=== PATIENT | female | born 1960 | race African-American/Black ===

== ENCOUNTER 2023-12-13 15:14 | Observation (INO) | payer MEDICARE, OTHER ==
--- NOTE | 2023-12-13 15:29 | ED ---
General Adult HPI - General Chief complaint: Chest Pain Stated complaint: Chest pain Time Seen by Provider: 12/13/23 15:17 Source: patient, EMS, RN notes reviewed Mode of arrival: EMS Limitations: no limitations - History of Present Illness Initial comments: Patient is a 63-year-old female presenting to the emergency department from [place] with complaints of chest discomfort. Onset of symptoms was a couple hours ago. Discomfort feels sharp and persistent. Discomfort is rated 9/10. There may be associated minimal dyspnea. No nausea. No diaphoresis. No history of similar symptoms previously. Patient does have history of 2 previous heart attacks. Patient also has history of sarcoidosis. patient is at [place] secondary to history of cocaine use. - Related Data Home Medications Medication Instructions Recorded Confirmed Acetaminophen [Tylenol] 650 mg PO Q4H PRN 12/13/23 12/13/23 Aspirin 81 mg PO DAILY 12/13/23 12/13/23 Atorvastatin [Lipitor] 20 mg PO HS 12/13/23 12/13/23 Calcium Phos/D3/Magnesium/Zinc 1 tab PO TID PRN 12/13/23 12/13/23 [Gumbaud-Qoq-Aluk-Vitamin D3] Empagliflozin [Jardiance] 10 mg PO DAILY 12/13/23 12/13/23 Fluticasone/Vilanterol [Breo 1 puff INHALATION RT-BID 12/13/23 12/13/23 Ellipta 100-25 Mcg Inhalr] Furosemide [Lasix] 40 mg PO DAILY 12/13/23 12/13/23 Ibuprofen [Motrin Ib] 600 mg PO Q6H PRN 12/13/23 12/13/23 Menthol [Icy Hot] 1 patch TRANSDERM Q12H PRN 12/13/23 12/13/23 Sacubitril/Valsartan [Entresto 24 1 tab PO BID 12/13/23 12/13/23 mg-26 mg Tablet] Simethicone Chew [Mylicon Chew] 80 mg PO Q4H PRN 12/13/23 12/13/23 Spironolactone 25 mg PO DAILY 12/13/23 12/13/23 carvediloL [Coreg] 3.125 mg PO BID 12/13/23 12/13/23 traZODone HCL [Desyrel] 50 - 150 mg PO HS PRN 12/13/23 12/13/23 Allergies Allergy/AdvReac Type Severity Reaction Status Date / Time Iodinated Contrast Media Allergy Unknown Verified 12/13/23 15:44 Review of Systems ROS Statement: Those systems with pertinent positive or pertinent negative responses have been documented in the HPI. ROS Other: All systems not noted in ROS Statement are negative. Constitutional: Denies: fever Eyes: Denies: eye pain ENT: Denies: ear pain Respiratory: Reports: as per HPI Cardiovascular: Reports: as per HPI, chest pain Musculoskeletal: Denies: back pain Past Medical History Past Medical History: Cancer Additional Past Medical History / Comment(s): CHF, fibromyalgia History of Any Multi-Drug Resistant Organisms: None Reported Past Surgical History: No Surgical Hx Reported Past Psychological History: No Psychological Hx Reported Past Drug Use History: Cocaine General Exam Limitations: no limitations General appearance: alert, in no apparent distress Head exam: Present: normocephalic Eye exam: Present: normal appearance Neck exam: Present: normal inspection Respiratory exam: Present: normal lung sounds bilaterally. Absent: chest wall tenderness Cardiovascular Exam: Present: regular rate, normal rhythm Expanded Peripheral pulses: 2+: Radial (R), Radial (L), Dorsalis Pedis (R), Dorsalis Pedis (L) GI/Abdominal exam: Present: soft. Absent: tenderness Extremities exam: Present: normal inspection. Absent: pedal edema, calf tenderness Neurological exam: Present: alert Psychiatric exam: Present: normal affect, normal mood Skin exam: Present: normal color Course Vital Signs 12/13/23 12/13/23 12/13/23 15:15 15:23 15:41 Temperature 97.4 F L Pulse Rate 76 Pulse Rate [ 75 Safety Representative ] Respiratory 20 Rate Blood Pressure 117/62 98/81 O2 Sat by Pulse 100 Oximetry 12/13/23 12/13/23 12/13/23 16:43 16:48 18:00 Temperature 98.2 F Pulse Rate 76 76 84 Pulse Rate [ Safety Representative ] Respiratory 18 16 18 Rate Blood Pressure 104/80 108/69 105/77 O2 Sat by Pulse 95 100 Oximetry EKG Findings - EKG Results: EKG: interpreted by ERMD (Left axis. Septal Q waves. Inferior Q waves. Lateral T wave inversion.), sinus rhythm Medical Decision Making - Medical Decision Making [facility] back was pt. sent in by a medical professional or institution (JOVITA Osman, MEDICAL RESEARCH SCIENTIST, urgent care, hospital, or retirement...) When possible be specific @ -Patient was sent from [place] rehab facility Did you speak to anyone other than the patient for history (EMS, parent, family, police, friend...)? What history was obtained from this source @ -No Did you review nursing and triage notes (agree or disagree)? Why? @ -I reviewed and agree with nursing and triage notes Were old charts reviewed (outside hosp., previous admission, EMS record, old EKG, old radiological studies, urgent care reports/EKG's, retirement records)? Report findings @ -Reviewed from [place] Differential Diagnosis (chest pain, altered mental status, abdominal pain women, abdominal pain men, vaginal bleeding, weakness, fever, dyspnea, syncope, headache, dizziness, GI bleed, back pain, seizure, CVA, palpatations, mental health, musculoskeletal)? @ -Differential Chest Pain: Stable Angina, Unstable Angina, STEMI, NSTEMI Aortic Dissection, Pneumothorax, Musculoskeletal, Esophageal Spasm GERD, Cholecystitis, Pancreatitis, Zoster, this is not meant to be an all-inclusive list. EKG interpreted by me (3pts min.). @ -As above X-rays interpreted by me (1pt min.). @ -Chest x-ray shows cardiomegaly and minimal right effusion CT interpreted by me (1pt min.). @ -Scan without pulmonary embolism. There is concern for fluffy infiltrates. U/S interpreted by me (1pt. min.). @ -None done What testing was considered but not performed or refused? (CT, X-rays, U/S, labs)? Why? @ -None What meds were considered but not given or refused? Why? @ -None Did you discuss the management of the patient with other professionals (professionals i.e. JOVITA Osman, MEDICAL RESEARCH SCIENTIST, lab, RT, psych nurse, nephrology social worker, group cio, teacher, youth probation officer, telephonic nurse case manager)? Give summary @ -Case was discussed with Dr. Washington who will admit covering hospital call Was smoking cessation discussed for >3mins.? @ -No Was critical care preformed (if so, how long)? @ -No Were there social determinants of health that impacted care today? How? (Homelessness, low income, unemployed, alcoholism, drug addiction, transportation, low edu. Level, literacy, decrease access to med. care, assisted, rehab)? @ -No Was there de-escalation of care discussed even if they declined (Discuss DNR or withdrawal of care, Hospice)? DNR status @ -No What co-morbidities impacted this encounter? (DM, HTN, Smoking, COPD, CAD, Can cer, CVA, ARF, Chemo, Hep., AIDS, mental health diagnosis, sleep apnea, morbid obesity)? @ -Coronary artery disease Was patient admitted / discharged? Hospital course, mention meds given and route, prescriptions, significant lab abnormalities, going to OR and other pertinent info. @ -Patient presents with chest pain on reevaluation patient is symptom-free and resting comfortably in bed. Questionable findings on CT scan and COVID and influenza testing will be ordered. Patient does not have clinical symptoms of pneumonia as well as no fever and no elevation of white blood cell count. Patient will be admitted with cardiac consult. Admission orders written. Undiagnosed new problem with uncertain prognosis? @ -No Drug Therapy requiring intensive monitoring for toxicity (Heparin, Nitro, I nsulin, Cardizem)? @ -No Were any procedures done? @ -No Diagnosis/symptom? @ -Chest pain Acute, or Chronic, or Acute on Chronic? @ -Acute Uncomplicated (without systemic symptoms) or Complicated (systemic symptoms)? @ -Angela with history of sarcoid and cocaine use and previous cardiac disease Side effects of treatment? @ -No Exacerbation, Progression, or Severe Exacerbation? @ -No Poses a threat to life or bodily function? How? (Chest pain, [place], [place], pneumonia, PE, COPD, DKA, ARF, appy, cholecystitis, CVA, Diverticulitis, Homicidal, Suicidal, threat to staff... and all critical care pts) @ -Threat to cardiac function - Lab Data Result diagrams: 12/13/23 15:28 12/13/23 15:28 Lab Results 12/13/23 12/13/23 12/13/23 Range/Units 15:28 15:28 15: WBC 4.2 (3.8-10.6) k/uL RBC 4.87 (3.80-5.40) m/uL Hgb 14.5 (11.4-16.0) gm/dL Hct 45.7 (34.0-46.0) % MCV 93.8 (80.0-100.0) fL MCH 29.8 (25.0-35.0) pg MCHC 31.7 (31.0-37.0) g/dL RDW 15.1 (11.5-15.5) % Plt Count 246 (150-450) k/uL MPV 7.2 Neutrophils % 56 % Lymphocytes % 30 % Monocytes % 8 % Eosinophils % 4 % Basophils % 1 % Neutrophils # 2.3 (1.3-7.7) k/uL Lymphocytes # 1.2 (1.0-4.8) k/uL Monocytes # 0.4 (0-1.0) k/uL Eosinophils # 0.2 (0-0.7) k/uL Basophils # 0.0 (0-0.2) k/uL Hypochromasia Marked PT 10.8 (10.0-12.5) sec INR 1.0 (<1.2) APTT 23.1 (22.0-30.0) sec D-Dimer 0.97 H (<0.60) mg/L FEU Sodium 138 (137-145) mmol/L Potassium 5.1 (3.5-5.1) mmol/L Chloride 110 H (98-107) mmol/L Carbon Dioxide 21 L (22-30) mmol/L Anion Gap 7 mmol/L BUN 35 H (7-17) mg/dL Creatinine 1.25 H (0.52-1.04) mg/dL Est GFR (CKD-EPI)AfAm 54 (>60 ml/min/1.73 sqM) Est GFR (CKD-EPI)NonAf 47 (>60 ml/min/1.73 sqM) Glucose 67 L (74-99) mg/dL Calcium 9.8 (8.4-10.2) mg/dL Magnesium 2.0 (1.6-2.3) mg/dL Total Bilirubin 0.5 (0.2-1.3) mg/dL AST 34 (14-36) U/L ALT 24 (4-34) U/L Alkaline Phosphatase 97 (38-126) U/L Troponin I (0.000-0.034) ng/mL Total Protein 7.4 (6.3-8.2) g/dL Albumin 4.3 (3.5-5.0) g/dL Amylase 207 H (30-110) U/L Lipase 608 H (23-300) U/L 12/13/23 Range/Units 15:28 WBC (3.8-10.6) k/uL RBC (3.80-5.40) m/uL Hgb (11.4-16.0) gm/dL Hct (34.0-46.0) % MCV (80.0-100.0) fL MCH (25.0-35.0) pg MCHC (31.0-37.0) g/dL RDW (11.5-15.5) % Plt Count (150-450) k/uL MPV Neutrophils % % Lymphocytes % % Monocytes % % Eosinophils % % Basophils % % Neutrophils # (1.3-7.7) k/uL Lymphocytes # (1.0-4.8) k/uL Monocytes # (0-1.0) k/uL Eosinophils # (0-0.7) k/uL Basophils # (0-0.2) k/uL Hypochromasia PT (10.0-12.5) sec INR (<1.2) APTT (22.0-30.0) sec D-Dimer (<0.60) mg/L FEU Sodium (137-145) mmol/L Potassium (3.5-5.1) mmol/L Chloride (98-107) mmol/L Carbon Dioxide (22-30) mmol/L Anion Gap mmol/L BUN (7-17) mg/dL Creatinine (0.52-1.04) mg/dL Est GFR (CKD-EPI)AfAm (>60 ml/min/1.73 sqM) Est GFR (CKD-EPI)NonAf (>60 ml/min/1.73 sqM) Glucose (74-99) mg/dL Calcium (8.4-10.2) mg/dL Magnesium (1.6-2.3) mg/dL Total Bilirubin (0.2-1.3) mg/dL AST (14-36) U/L ALT (4-34) U/L Alkaline Phosphatase (38-126) U/L Troponin I <0.012 (0.000-0.034) ng/mL Total Protein (6.3-8.2) g/dL Albumin (3.5-5.0) g/dL Amylase (30-110) U/L Lipase (23-300) U/L Disposition Clinical Impression: Chest pain Disposition: ADMITTED IP TO THIS HOSP Is patient prescribed a controlled substance at d/c from ED?: No Referrals: Nonstaff,Physician [Primary Care Provider] - 1-2 days Time of Disposition: 18:51
[2023-12-13] MEDS: ASPIRIN 81 MG PO STA (15:39)
[2023-12-13 15:40] LABS: Basophils % (A) 1 %; Eosinophils # (A) 0.2 k/uL (0-0.7); Eosinophils % (A) 4 %; HCT 45.7 % (34.0-46.0); HGB 14.5 gm/dL (11.4-16.0); Hypochromasia Marked; Lymphocytes # (A) 1.2 k/uL (1.0-4.8); Lymphocytes % (A) 30 %; MCH 29.8 pg (25.0-35.0); MCHC 31.7 g/dL (31.0-37.0); MCV 93.8 fL (80.0-100.0); Mean Platelet Volume 7.2; Monocytes # (A) 0.4 k/uL (0-1.0); Monocytes % (A) 8 %; Neutrophils # (A) 2.3 k/uL (1.3-7.7); Neutrophils % (A) 56 %; Platelet Count 246 k/uL (150-450); RBC 4.87 m/uL (3.80-5.40); RDW 15.1 % (11.5-15.5); WBC 4.2 k/uL (3.8-10.6)
[2023-12-13] MEDS: NITROGLYCERIN SL TABS 0.4 MG TAB SUBLINGUAL STA ×3 (15:41→15:56)
[2023-12-13] MEDS: LORazepam 2 MG/ML INJ IV STA (15:43)
--- NOTE | 2023-12-13 15:43 | XR ---
EXAMINATION TYPE: XR chest 2V DATE OF EXAM: 12/13/2023 3:36 PM CLINICAL INDICATION:Female, 63 years old with history of Chest Pain; PH[facility] COMPARISON: None TECHNIQUE: XR chest 2V Frontal view of the chest. FINDINGS: Lungs/Pleura: Blunting of the right costophrenic angle. The left costophrenic angle is clear. There i s no evidence of pleural effusion, focal consolidation, or pneumothorax. Pulmonary vascularity: Unremarkable. Heart/mediastinum: Cardiomediastinal silhouette is enlarged and stable. Two lead cardiac conduction d evice overlying the left hemithorax with lead tips projecting over the right ventricle and right atri um. Musculoskeletal: No acute osseous pathology. IMPRESSION: Cardiomegaly with small right pleural effusion.
[2023-12-13 15:51] LABS: ALT 24 U/L (4-34); AST 34 U/L (14-36); African American GFR (CKD) 54 (>60 ml/min/1.73 sqM); Albumin 4.3 g/dL (3.5-5.0); Alkaline Phosphatase 97 U/L (38-126); Amylase 207 U/L (30-110); Anion Gap 7 mmol/L; Blood Urea Nitrogen 35 mg/dL (7-17); Calcium 9.8 mg/dL (8.4-10.2); Carbon Dioxide 21 mmol/L (22-30); Chloride 110 mmol/L (98-107); Glucose 67 mg/dL (74-99); Lipase 608 U/L (23-300); Non-African American GFR(CKD) 47 (>60 ml/min/1.73 sqM); Potassium 5.1 mmol/L (3.5-5.1); Sodium 138 mmol/L (137-145); Total Bilirubin 0.5 mg/dL (0.2-1.3); Total Protein 7.4 g/dL (6.3-8.2)
[2023-12-13] MEDS: SODIUM CHLORIDE 0.9% 500 ML 500 ML IV ONE (15:52)
[2023-12-13 15:57] LABS: Partial Thromboplastin Time 23.1 sec (22.0-30.0); Prothrombin Time 10.8 sec (10.0-12.5)
[2023-12-13] MEDS: methylPREDNISolone SOD SUCCI 125 MG/2 ML VIAL IV STA (16:36)
[2023-12-13] MEDS: FAMOTIDINE 20 MG/2 ML VIAL IV STA (16:39)
[2023-12-13] MEDS: diphenhydrAMINE 50 MG/ML 1 ML VIAL IVP STA (16:43)
--- NOTE | 2023-12-13 18:30 | CT ---
EXAMINATION TYPE: CT angio chest CT DLP: 345.4 mGycm, Automated exposure control for dose reduction was used. DATE OF EXAM: 12/13/2023 5:38 PM COMPARISON: Chest radiograph from same day. Multiple CTs of the chest with most recent on . CLINICAL INDICATION:Female, 63 years old with history of chest pain; CHEST PAIN TECHNIQUE/CONTRAST: CTA scan of the thorax is performed with IV Contrast, patient injected with 100 ml mL of Isovue 370, MIP images are created and reviewed these are created on a separate workstation.. FINDINGS: Pulmonary Artery: There is no evidence for a filling defect within the pulmonary vasculature to sugge st acute pulmonary embolism. The pulmonary artery is of normal size. Lungs/Pleura: Small foci of consolidation in the posterior right lower lobe. Small amount of pneumoni a in the right lung base patchy groundglass and more confluent areas of airspace disease in the right lobe. Hazy groundglass opacity in the lingula. Airway: Large airways are patent. Heart: Enlarged. Vasculature: No evidence of aortic aneurysm. Mediastinum: No gross evidence of adenopathy. Musculoskeletal: No acute osseous abnormalities Soft Tissues: Unremarkable. Lower neck: No significant findings. Upper Abdomen: No significant findings. IMPRESSION: 1. No evidence of pulmonary embolism. 2. Peripheral groundglass pulmonary opacities consistent with atypical pulmonary infection such as CO VID-19. 3. Other areas of more focally consolidated could represent community-acquired pneumonia. Follow up recommendations for incidental pulmonary nodules, if there are any, are per [employer] or [employer]. https://radiopaedia.org/articles/ojkhbbboge-[email or web address]?lang=us
[2023-12-13] MEDS ORDERED: NITROGLYCERIN SL TABS 0.4 MG TAB SUBLINGUAL PRN (18:51)
[2023-12-13] MEDS ORDERED: METHYL SALICYLATE-MENTHOL OINT (3 OZ TUBE) TOPICAL PRN (18:52)
[2023-12-13] MEDS ORDERED: CALCIUM CARB-VIT D 500 MG-5 MCG TAB PO PRN (18:52)
[2023-12-13] MEDS ORDERED: SIMETHICONE 80 MG CHEWABLE PO PRN (18:52)
[2023-12-13] MEDS: ATORVASTATIN 20 MG TAB PO SCH (21:17)
[2023-12-13] MEDS: SACUBITRIL/VALSARTAN 24 MG-26 MG TABLET PO SCH (21:17)
[2023-12-13] MEDS: carvediloL 3.125 MG TAB PO SCH (21:17)
[2023-12-13] MEDS: SYMBICORT 80-4.5 MCG INHALER INHALATION SCH (21:59)
[2023-12-14] MEDS: ACETAMINOPHEN TAB 325 MG TAB PO PRN (00:08)
[2023-12-14] MEDS: traZODone HCL 50 MG TAB PO PRN (00:08)
[2023-12-14] MEDS: NITROGLYCERIN OINT 1 INCH/GM PACKET TOPICAL SCH (00:11)
[2023-12-14 08:38] LABS: Basophils # (A) 0.01 X 10*3/uL (0.00-0.10); Basophils % (A) 0.2 %; Eosinophils # (A) 0 X 10*3/uL (0.04-0.35); Eosinophils % (A) 0 %; HCT 44.6 % (37.2-46.3); HGB 14.2 g/dL (12.0-15.0); Lymphocytes # (A) 0.73 X 10*3/uL (0.90-5.00); Lymphocytes % (A) 13.1 %; MCH 29.5 pg (27.0-32.0); MCHC 31.8 g/dL (32.0-37.0); MCV 92.7 FL (80.0-97.0); Mean Platelet Volume 10.6 FL (9.5-12.2); Monocytes % (A) 1.8 %; NRBC Per 100 WBC 0 X 10*3/uL (0.00-0.01); Neutrophils # (A) 4.69 X 10*3/uL (1.80-7.70); Neutrophils % (A) 84.4 %; Platelet Count 266 X 10*3/uL (140-440); RBC 4.81 X 10*6/uL (4.10-5.20); RDW 15.4 % (11.5-14.5); WBC 5.56 X 10*3/uL (4.50-10.00)
[2023-12-14 08:57] LABS: Chol/HDL Ratio 2.24 Ratio; LDL Cholesterol,Calculated 80.5 mg/dL (0.0-131.0); VLDL Calculation 8.46 mg/dL (5.00-40.00)
[2023-12-14 08:58] LABS: BUN/Creat Ratio 27.82 Ratio (12.00-20.00); Blood Urea Nitrogen 30.6 mg/dL (9.0-27.0); Calcium 9.4 mg/dL (8.7-10.3); Carbon Dioxide 17.2 mmol/L (21.6-31.8); Chloride 110 mmol/L (96-109); Glucose 150 mg/dL (70-110); Potassium 5.4 mmol/L (3.5-5.5); Sodium 138 mmol/L (135-145)
[2023-12-14] MEDS: ASPIRIN 325 MG TAB PO SCH (09:51)
[2023-12-14] MEDS: DAPAGLIFLOZIN PROPANEDIOL 5 MG TABLET PO SCH (09:51)
[2023-12-14] MEDS: FUROSEMIDE 40 MG TAB PO SCH (09:51)
[2023-12-14] MEDS: SPIRONOLACTONE 25 MG TAB PO SCH (09:51)
[2023-12-14] MEDS: IPRATROPIUM-ALBUTEROL 3 ML NEB INHALATION PRN (10:01)
--- NOTE | 2023-12-14 11:09 | P.CRDCN ---
History of Present Illness History of present illness: This is Dr. Lux dictating a consult on this patient The patient was interviewed and examined IMPRESSION / ASSESSMENT: Chest discomfort with abnormal findings on chest CT likely pneumonitis History of cocaine use and [place] at this time Abnormal EKG with 3 normal troponins Patient's medications suggest that she has cardiomyopathy and the EKG is consistent with this. 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 She is on guideline directed medical treatment She has never had any coronary stenting or bypass surgery performed PLAN: 2D echo and Doppler study Treat pneumonitis and other noncardiac medical conditions during this admission Continue patient's heart failure medications from before Obtain prior cardiac workup that was performed outside this hospital and scanned into the records show that when she comes in in the future we have some kind of a baseline information HPI 63-year-old female presenting from [place] with chest discomfort for a few hours. Pain is sharp and persistent and rated in severity is 9 out of 10 Cocaine use history Twelve-lead EKG shows ST T abnormality with 3 normal troponins Abnormal lipase ROS: No fever chills or rigors, no cough, phlegm or expectoration, no nausea, vomiting or diarrhea, no hematuria, dysuria, no musculoskeletal complaints, no strokes or seizures, no skin lesions. EXAMINATION: Blood pressure 121/81, pulse rate in the 70s afebrile Heart sounds are normal Breath sounds are clear REVIEW OF LABS, ECG & MEDICAL DATA CT scan for chest pain shows no evidence of pulmonary embolism Groundglass pulmonary opacities consistent with atypical pneumonia, small foci of consolidation in the posterior right lower lobe Twelve-lead EKG shows sinus rhythm poor R wave progression T wave inversions V5- V6 1 and aVL left axis deviation Hemoglobin 14.5 white count normal platelet count 246,000 Mildly elevated D-dimer 3 normal troponins Abnormal amylase and lipase Bicarb is low BUN 35 creatinine 1.25 Past Medical History Past Medical History: Hyperlipidemia, Hypertension Additional Past Medical History / Comment(s): CHF, fibromyalgia, lupus, sarcoidosis, kidney mass History of Any Multi-Drug Resistant Organisms: None Reported Past Surgical History: No Surgical Hx Reported Additional Past Surgical History / Comment(s): 11 breast abcess surgeries, 2 back surgeries, lung biopsy Past Psychological History: Anxiety Additional Psychological History / Comment(s): "tripolar" Smoking Status: Current some day smoker Past Drug Use History: Cocaine Medications and Allergies Home Medications Medication Instructions Recorded Confirmed Type Acetaminophen [Tylenol] 650 mg PO Q4H PRN 12/13/23 12/13/23 History Aspirin 81 mg PO DAILY 12/13/23 12/13/23 History Atorvastatin [Lipitor] 20 mg PO HS 12/13/23 12/13/23 History Calcium Phos/D3/Magnesium/Zinc 1 tab PO TID PRN 12/13/23 12/13/23 History [Wtoivws-Vtk-Dziv-Vitamin D3] Empagliflozin [Jardiance] 10 mg PO DAILY 12/13/23 12/13/23 History Fluticasone/Vilanterol [Breo 1 puff INHALATION RT-BID 12/13/23 12/13/23 History Ellipta 100-25 Mcg Inhalr] Furosemide [Lasix] 40 mg PO DAILY 12/13/23 12/13/23 History Ibuprofen [Motrin Ib] 600 mg PO Q6H PRN 12/13/23 12/13/23 History Menthol [Icy Hot] 1 patch TRANSDERM Q12H PRN 12/13/23 12/13/23 History Sacubitril/Valsartan [Entresto 24 1 tab PO BID 12/13/23 12/13/23 History mg-26 mg Tablet] Simethicone Chew [Mylicon Chew] 80 mg PO Q4H PRN 12/13/23 12/13/23 History Spironolactone 25 mg PO DAILY 12/13/23 12/13/23 History carvediloL [Coreg] 3.125 mg PO BID 12/13/23 12/13/23 History traZODone HCL [Desyrel] 50 - 150 mg PO HS PRN 12/13/23 12/13/23 History Allergies Allergy/AdvReac Type Severity Reaction Status Date / Time Iodinated Contrast Media Allergy Unknown Verified 12/13/23 15:44 Physical Exam Vitals: Vital Signs Temp Pulse Pulse Pulse Resp BP BP 12/14/23 07:00 97.4 F L 56 L 14 93/66 12/14/23 06:09 77 104/72 12/14/23 02:09 97.9 F 71 18 103/68 12/13/23 22:12 97.7 F 79 18 121/81 12/13/23 21:19 80 16 12/13/23 19:25 98 F 85 16 100/87 12/13/23 18:00 98.2 F 84 18 105/77 12/13/23 16:48 76 16 108/69 12/13/23 16:43 76 18 104/80 12/13/23 15:41 98/81 12/13/23 15:23 75 12/13/23 15:15 97.4 F L 76 20 117/62 Pulse Ox 12/14/23 07:00 100 12/14/23 06:09 12/14/23 02:09 99 12/13/23 22:12 100 12/13/23 21:19 12/13/23 19:25 97 12/13/23 18:00 100 12/13/23 16:48 95 12/13/23 16:43 12/13/23 15:41 12/13/23 15:23 12/13/23 15:15 100 Intake and Output 12/13/23 12/14/23 12/14/23 22:59 06:59 14:59 Other: # Voids 0 2 Weight 81.647 kg Results 12/14/23 04:57 12/14/23 04:57 Cardiac Enzymes 12/13/23 12/13/23 12/13/23 Range/Units 15:28 15:28 20:17 AST 34 (14-36) U/L Troponin I <0.012 <0.012 (0.000-0.034) ng/mL 12/13/23 Range/Units 21:43 AST (14-36) U/L Troponin I <0.012 (0.000-0.034) ng/mL Coagulation 12/13/23 Range/Units 15:28 PT 10.8 (10.0-12.5) sec APTT 23.1 (22.0-30.0) sec CBC 12/13/23 Range/Units 15:28 WBC 4.2 (3.8-10.6) k/uL RBC 4.87 (3.80-5.40) m/uL Hgb 14.5 (11.4-16.0) gm/dL Hct 45.7 (34.0-46.0) % Plt Count 246 (150-450) k/uL Comprehensive Metabolic Panel 12/13/23 Range/Units 15:28 Sodium 138 (137-145) mmol/L Potassium 5.1 (3.5-5.1) mmol/L Chloride 110 H (98-107) mmol/L Carbon Dioxide 21 L (22-30) mmol/L BUN 35 H (7-17) mg/dL Creatinine 1.25 H (0.52-1.04) mg/dL Glucose 67 L (74-99) mg/dL Calcium 9.8 (8.4-10.2) mg/dL AST 34 (14-36) U/L ALT 24 (4-34) U/L Alkaline Phosphatase 97 (38-126) U/L Total Protein 7.4 (6.3-8.2) g/dL Albumin 4.3 (3.5-5.0) g/dL Current Medications Generic Name Dose Route Start Last Admin Trade Name Freq PRN Reason Stop Dose Admin Acetaminophen 650 mg 12/13/23 18:52 12/14/23 05:04 Acetaminophen Tab 325 Mg Tab PO 650 mg Q4H PRN Administration Fever and/ or Pain Albuterol/Ipratropium 3 ml 12/14/23 01:13 Ipratropium-Albuterol 3 Ml Neb INHALATION RT-QID PRN Shortness Of Breath Or Wheezing Aspirin 325 mg 12/14/23 09:00 Aspirin 325 Mg Tab PO DAILY LEVY Atorvastatin Calcium 20 mg 12/13/23 21:00 12/13/23 21:17 Atorvastatin 20 Mg Tab PO 20 mg HS LEVY Administration Budesonide/Formoterol Fumarate 2 puff 12/13/23 20:00 12/13/23 21:59 Symbicort 80-4.5 Mcg Inhaler INHALATION Not Given RT-BID LEVY Calcium Carbonate 1 each 12/13/23 18:52 Calcium Carb-Vit D 500 Mg-5 Mcg Tab PO TID PRN CRAMPING Carvedilol 3.125 mg 12/13/23 21:00 12/14/23 06:11 Carvedilol 3.125 Mg Tab PO 3.125 mg BID-W/MEALS LEVY Administration Dapagliflozin 5 mg 12/14/23 09:00 Dapagliflozin Propanediol 5 Mg Tablet PO DAILY [facility] Furosemide 40 mg 12/14/23 09:00 Furosemide 40 Mg Tab PO DAILY LEVY Methyl Salicylate 1 applic 12/13/23 18:52 Methyl Salicylate-Menthol Oint (3 Oz Tube) TOPICAL Q12H PRN Muscle Pain Nitroglycerin 0.4 mg 12/13/23 18:51 Nitroglycerin Sl Tabs 0.4 Mg Tab SUBLINGUAL Q5M PRN Chest Pain Nitroglycerin 1 inch 12/14/23 00:00 12/14/23 05:16 Nitroglycerin Oint 1 Inch/Gm Packet TOPICAL Not Given Q6HR LEVY Sacubitril/Valsartan 1 each 12/13/23 21:00 12/13/23 21:17 Sacubitril/Valsartan 24 Mg-26 Mg Tablet PO 1 each BID LEVY Administration Simethicone 80 mg 12/13/23 18:52 Simethicone 80 Mg Chewable PO Q4H PRN GI Upset Spironolactone 25 mg 12/14/23 09:00 Spironolactone 25 Mg Tab PO DAILY LEVY Trazodone HCl 100 mg 12/13/23 18:52 12/14/23 00:08 Trazodone Hcl 50 Mg Tab PO 100 mg HS PRN Administration Insomnia Intake and Output 12/13/23 12/14/23 12/14/23 22:59 06:59 14:59 Other: # Voids 0 2 Weight 81.647 kg 12/13/23 15:28 12/13/23 15:28
[2023-12-14 14:56] VITALS: BP 93/63; PULSE 67; RESP 18; TEMP 97.9
--- NOTE | 2023-12-14 19:42 | CA ---
Transthoracic Echo Report Name: Alma Rosa Cintron Age: 63 Gender: F : 1960 Exam Date: 12/14/2023 07:36 Exam Location: [place] [facility] Ht (in): 67 Wt (lb): 180 Ordering Physician: James Vazquez DO Attending/Referring Phys: Foreclosure Home Inspector Renee Lizama RDCS Procedure CPT: Indications: CP Cardiac Hx: Technical Quality: Fair Contrast 1: Definity Total Dose (mL): 2 Contrast 2: Total Dose (mL): MEASUREMENTS (Male / Female) Normal Values 2D ECHO LV Diastolic Diameter PLAX 7.5 cm 4.2 - 5.9 / 3.9 - 5.3 cm LV Systolic Diameter PLAX 7.1 cm IVS Diastolic Thickness 0.9 cm 0.6 - 1.0 / 0.6 - 0.9 cm LVPW Diastolic Thickness 1.0 cm 0.6 - 1.0 / 0.6 - 0.9 cm LV Relative Wall Thickness 0.3 LVOT Diameter 2.1 cm LV Diastolic Volume MOD BP 331.6 cm??? 67 - 155 / 56 - 104 cm??? LV Systolic Volume MOD BP 302.5 cm??? 22 - 58 / 19 - 49 cm??? LV Ejection Fraction MOD BP 8.8 % >= 55 % LV Cardiac Index MOD BP 924.4 cm???/min???m??? LV Diastolic Volume MOD 4C 328.0 cm??? LV Systolic Volume MOD 4C 300.7 cm??? LV Ejection Fraction MOD 4C 8.3 % LV Cardiac Index MOD 4C 865.2 cm???/min???m??? LV Diastolic Length 4C 9.0 cm LV Systolic Length 4C 8.8 cm LV Diastolic Volume MOD 2C 332.1 cm??? LV Systolic Volume MOD 2C 304.8 cm??? LV Ejection Fraction MOD 2C 8.2 % LV Cardiac Index MOD 2C 867.4 cm???/min???m??? LV Diastolic Length 2C 9.1 cm LV Systolic Length 2C 8.8 cm LA Volume 123.4 cm??? 18 - 58 / 22 - 52 cm??? LA Volume Index 62.2 cm???/m??? 16 - 28 cm???/m??? Ascending Aorta Diameter 3.4 cm DOPPLER AV Peak Velocity 116.0 cm/s AV Peak Gradient 5.4 mmHg AV Mean Velocity 85.0 cm/s AV Mean Gradient 3.1 mmHg AV Velocity Time Integral 20.0 cm LVOT Peak Velocity 97.3 cm/s LVOT Peak Gradient 3.8 mmHg LVOT Velocity Time Integral 16.2 cm LVOT Stroke Volume 57.0 cm??? LVOT Stroke Volume Index 29.5 ml/m??? LVOT Cardiac Index 1808.7 cm???/min???m??? AV Area Cont Eq vti 2.8 cm??? AV Area Cont Eq pk 3.0 cm??? MV Area PHT 4.9 cm??? MR Peak Velocity 451.7 cm/s MR Peak Gradient 81.6 mmHg MR Flow Rate PISA 26.4 cm???/s MR ERO PISA 0.1 cm??? MR Regurgitant Volume PISA 10.3 cm??? Mitral E Point Velocity 75.2 cm/s Mitral A Point Velocity 82.2 cm/s Mitral E to A Ratio 0.9 MV Deceleration Time 154.8 ms TR Peak Velocity 260.6 cm/s TR Peak Gradient 27.2 mmHg Right Atrial Pressure 5.0 mmHg Pulmonary Artery Systolic Pressu 32.2 mmHg Right Ventricular Systolic Press 32.2 mmHg PV Peak Velocity 90.4 cm/s PV Peak Gradient 3.3 mmHg FINDINGS Left Ventricle Left ventricular ejection fraction is estimated at 10 %. Severely increased left ventricular diastolic diameter. Severely increased left ventricular diastolic volume. Severely increased left ventricular systolic volume. Severely decreased left ventricular ejection fraction with severe global hypokinesis. Right Ventricle Right ventricular dilatation with moderately reduced function. Right ventricular systolic pressure within normal limits. Right Atrium Severe right atrial dilatation. Catheter/pacemaker wire in the right atrial cavity. Left Atrium Severely increased left atrial volume. Mildly increased left atrial area. Mitral Valve Structurally normal mitral valve. No evidence for mitral valve prolapse. No mitral stenosis. Moderate mitral regurgitation. Aortic Valve Trileaflet aortic valve. No aortic stenosis. Trace aortic regurgitation. Tricuspid Valve Structurally normal tricuspid valve. No tricuspid stenosis. Mild tricuspid regurgitation. Pulmonic Valve Structurally normal pulmonic valve. No pulmonic stenosis. Trace pulmonic regurgitation. Pericardium No pericardial effusion. Aorta Normal size aortic root and proximal ascending aorta. CONCLUSIONS Diagnosis: Chest pain, Dilated left ventricle with severe LV dysfunction ejection fraction 10% Severe biatrial enlargement lead noted in the right ventricle RV dilation with reduced systolic function Biventricular enlargement and biatrial enlargement Previewed by: Dr. Heri Lux MD (Electronically Signed) Final Date: 14 December 2023 19:41
--- NOTE | 2023-12-19 02:12 | P.HPIM ---
History of Present Illness H&P Date: 12/13/23 Chief Complaint: Chest pain Patient is a 63-year-old female with a past medical history of cardiomyopathy status post dual-chamber ICD placement, history of lupus, sarcoidosis, history of lung biopsy, fibromyalgia, chronic CHF systolic function, hypertension, hyperlipidemia, anxiety and currently someday smoker and cocaine use. Patient presented to ER from [facility] due to complaints of chest discomfort. Patient started having symptoms couple hours prior to admission felt like sharp and persistent pain Retrosternal. 9 out of 10 in severity. Associate with some shortness of breath. No nausea or vomiting. No diaphoresis. No headache or dizziness or lightheadedness. No fever no chills. Denies any recent illnesses. Patient is currently a second heart rehab facility due to cocaine use. Chest x-ray showed cardiomegaly with small right pleural effusion. CTA chest showed no evidence of PE. Peripheral groundglass pulmonary opacities consistent with atypical pulmonary infection such as COVID-19. Laboratory data showed WBC 4.2 hemoglobin 14.5 and platelets 246. D-dimer 0.97. Sodium 138 potassium 5.1 chloride 110 bicarb is 21 BUN 35 and creatinine 1.25 and blood sugar 67. Liver enzymes are not elevated. Lipase level is 608 Troponin x 3 negative. Influenza A B RSV and COVID-19 PCR not detected. Patient was given nitro glycerin sublingual in the ER was did not help as per patient. Patient was also given a dose of IV Solu-Medrol 125 mg in the ER. Review of Systems Constitutional: Patient denies any fever or chills . No generalized weakness or weight loss. Abdomen: Patient denied nausea vomiting and diarrhea and abdominal pain. Cardiovascular: Patient does complain of sharp chest pain and 1 short of breath no palpitations. No leg swelling. Respiratory: patient denied any cough or sputum production. No shortness of breath Neurologic: Patient denied any numbness or tingling. no headache. Musculoskeletal: Patient denies any complaints of joint swelling or deformity. Skin: Negative Psychiatric: Negative Endocrine: No heat or cold intolerance. No recent weight gain. Genitourinary: No dysuria or hematuria. All other 14 point ROS negative except the above Past Medical History Past Medical History: Hyperlipidemia, Hypertension Additional Past Medical History / Comment(s): CHF, fibromyalgia, lupus, sarcoidosis, kidney mass History of Any Multi-Drug Resistant Organisms: None Reported Past Surgical History: No Surgical Hx Reported Additional Past Surgical History / Comment(s): 11 breast abcess surgeries, 2 back surgeries, lung biopsy Past Psychological History: Anxiety Additional Psychological History / Comment(s): "tripolar" Smoking Status: Current some day smoker Past Drug Use History: Cocaine Medications and Allergies Home Medications Medication Instructions Recorded Confirmed Type Acetaminophen [Tylenol] 650 mg PO Q4H PRN 12/13/23 12/13/23 History Aspirin 81 mg PO DAILY 12/13/23 12/13/23 History Atorvastatin [Lipitor] 20 mg PO HS 12/13/23 12/13/23 History Calcium Phos/D3/Magnesium/Zinc 1 tab PO TID PRN 12/13/23 12/13/23 History [Ppzgejt-Bhr-Kpbp-Vitamin D3] Empagliflozin [Jardiance] 10 mg PO DAILY 12/13/23 12/13/23 History Fluticasone/Vilanterol [Breo 1 puff INHALATION RT-BID 12/13/23 12/13/23 History Ellipta 100-25 Mcg Inhalr] Ibuprofen [Motrin Ib] 600 mg PO Q6H PRN 12/13/23 12/13/23 History Menthol [Icy Hot] 1 patch TRANSDERM Q12H PRN 12/13/23 12/13/23 History Sacubitril/Valsartan [Entresto 24 1 tab PO BID 12/13/23 12/13/23 History mg-26 mg Tablet] Simethicone Chew [Mylicon Chew] 80 mg PO Q4H PRN 12/13/23 12/13/23 History Spironolactone 25 mg PO DAILY 12/13/23 12/13/23 History carvediloL [Coreg] 3.125 mg PO BID 12/13/23 12/13/23 History traZODone HCL [Desyrel] 50 - 150 mg PO HS PRN 12/13/23 12/13/23 History Furosemide [Lasix] 40 mg PO DAILY PRN #0 12/14/23 12/13/23 Rx Allergies Allergy/AdvReac Type Severity Reaction Status Date / Time Iodinated Contrast Media Allergy Unknown Verified 12/13/23 15:44 Physical Exam Vitals: Vital Signs Temp Pulse Pulse Resp BP Pulse Ox 12/13/23 21:19 80 16 12/13/23 19:25 98 F 85 16 100/87 97 12/13/23 18:00 98.2 F 84 18 105/77 100 12/13/23 16:48 76 16 108/69 95 12/13/23 16:43 76 18 104/80 12/13/23 15:41 98/81 12/13/23 15:23 75 12/13/23 15:15 97.4 F L 76 20 117/62 100 Intake and Output 12/13/23 12/13/23 12/13/23 06:59 14:59 22:59 Other: Weight 81.647 kg PHYSICAL EXAMINATION: Patient is lying in the bed comfortably, no acute distress, awake alert and oriented.. HEENT: Normocephalic. Neck is supple. Pupils reactive. Nostrils clear. Oral cavity is moist. Neck reveals no JVD, carotid bruits, or thyromegaly. CHEST EXAMINATION: Trachea is central. Symmetrical expansion. Bibasilar dimin ished sounds. No wheezing. Scattered rhonchi. CARDIAC: Normal S1, S2 with no gallops. No murmurs ABDOMEN: Soft. Bowel sounds normal. No organomegaly. No abdominal bruits. Extremities: reveal no edema. No clubbing or cyanosis Neurologically awake, alert, oriented x3 with well-coordinated movements. No focal deficits noted Skin: No rash or skin lesions. Psychiatric: Coperative. Nonsuicidal Musculoskeletal: No joint swelling or deformity. Normal range of motion. Results CBC & Chem 7: 12/14/23 04:57 12/14/23 04:57 Labs: Abnormal Lab Results - Last 24 Hours (Table) 12/13/23 12/13/23 Range/Units 15:28 15:28 D-Dimer 0.97 H (<0.60) mg/L FEU Chloride 110 H (98-107) mmol/L Carbon Dioxide 21 L (22-30) mmol/L BUN 35 H (7-17) mg/dL Creatinine 1.25 H (0.52-1.04) mg/dL Glucose 67 L (74-99) mg/dL Amylase 207 H (30-110) U/L Lipase 608 H (23-300) U/L Thrombosis Risk Factor Assmnt - DVT/VTE Prophylaxis DVT/VTE Prophylaxis: Pharmacologic Prophylaxis ordered Assessment and Plan Assessment: Atypical chest pain. CT findings of peripheral groundglass opacities. COVID-19 PCR negative. Patient was given a dose of IV Solu-Medrol in the ER. History of cocaine use currently [facility] Mild acute kidney injury likely prerenal Cardiomyopathy nonischemic status post ICD placement dual-chamber patient follows with Dr. Mejía at [facility] History of sarcoid and lung biopsy History of lupus Hypertension Hyperlipidemia Anxiety Fibromyalgia DVT prophylaxis heparin subcu Cocaine use and currently someday smoker Plan: Patient will be started on telemonitoring. Serial EKG and troponin x 3 negative. Symptomatic management for nausea. Encourage oral intake. Patient was started back on home medication including aspirin, statin, Coreg, Lasix and Entresto. Patient is also on spironolactone. Follow-up renal function. Continue with [facility]. Pain management and follow-up closely. Cardiology was consulted for evaluation. 2D echocardiogram was ordered. Time with Patient: Greater than 30
--- NOTE | 2023-12-19 02:12 | P.DS ---
Providers Date of admission: 12/13/23 18:52 Expected date of discharge: 12/14/23 Attending physician: Clif Washington Consults: 12/13/23 18:51 Consult Physician Urgent Consulting Provider: Bandar López Consult Reason/Comments: cp Do you want consulting provider notified?: Yes Primary care physician: Physician Nonstaff Hospital Course: Discharge diagnosis Atypical chest pain. Likely pleuritic. Improved now. CT findings of peripheral groundglass opacities. COVID-19 PCR negative. Patient was given a dose of IV Solu-Medrol in the ER. History of cocaine use currently [facility] Mild acute kidney injury likely prerenal Cardiomyopathy nonischemic status post ICD placement dual-chamber patient follows with Dr. Mejía at [facility] History of sarcoid and lung biopsy History of lupus Hypertension Hyperlipidemia Anxiety Fibromyalgia DVT prophylaxis heparin subcu Cocaine use and currently someday smoker Hospital course Patient is a 63-year-old female with a past medical history of cardiomyopathy status post dual-chamber ICD placement, history of lupus, sarcoidosis, history of lung biopsy, fibromyalgia, chronic CHF systolic function, hypertension, hyperlipidemia, anxiety and currently someday smoker and cocaine use. Patient presented to ER from [facility] due to complaints of chest discomfort. Patient started having symptoms couple hours prior to admission felt like sharp and persistent pain Retrosternal. 9 out of 10 in severity. Associate with some shortness of breath. No nausea or vomiting. No diaphoresis. No headache or dizziness or lightheadedness. No fever no chills. Denies any recent illnesses. Patient is currently a second heart rehab facility due to cocaine use. Chest x-ray showed cardiomegaly with small right pleural effusion. CTA chest showed no evidence of PE. Peripheral groundglass pulmonary opacities consistent with atypical pulmonary infection such as COVID-19. Laboratory data showed WBC 4.2 hemoglobin 14.5 and platelets 246. D-dimer 0.97. Sodium 138 potassium 5.1 chloride 110 bicarb is 21 BUN 35 and creatinine 1.25 and blood sugar 67. Liver enzymes are not elevated. Lipase level is 608 Troponin x 3 negative. Influenza A B RSV and COVID-19 PCR not detected. Patient was given nitro glycerin sublingual in the ER was did not help as per patient. Patient was also given a dose of IV Solu-Medrol 125 mg in the ER. Patient was continued on telemonitoring. Serial EKG and troponin x 3 negative. Symptomatic management for nausea. Encourage oral intake. Patient was started back on home medication including aspirin, statin, Coreg, Lasix and Entresto. Patient is also on spironolactone. Follow-up renal function. Continue with DuoNebs and Breo. Pain management and follow-up closely. Cardiology was consulted for evaluation. 2D echocardiogram was ordered.Patient had 2D echocardiogram which showed dilated left ventricle with severe LV dysfunction ejection fraction 10%. Severe bilateral enlargement. RV dilation with reduced systolic function. Biventricular enlargement and biatrial enlargement. Patient is currently on goal-directed therapy.Improved symptomatically and currently denies any chest pain or shortness of breath. Patient would like to be discharged home and wants to follow-up with [facility] as an outpatient. Patient was advised to follow with his business office representative and follow-up with primary care physician next 1 to 3 days. Patient is cleared from cardiology standpoint. Patient was counseled extensively for cocaine abstinence and smoking cessation. PHYSICAL EXAMINATION: Patient is lying in the bed comfortably, no acute distress, awake alert and oriented.. HEENT: Normocephalic. Neck is supple. Pupils reactive. Nostrils clear. Oral cavity is moist. Neck reveals no JVD, carotid bruits, or thyromegaly. CHEST EXAMINATION: Trachea is central. Symmetrical expansion. Lung mckeon clear to auscultation and percussion. CARDIAC: Normal S1, S2 with no gallops. No murmurs ABDOMEN: Soft. Bowel sounds normal. No organomegaly. No abdominal bruits. Extremities: reveal no edema. No clubbing or cyanosis Neurologically awake, alert, oriented x3 with well-coordinated movements. No focal deficits noted Skin: No rash or skin lesions. Psychiatric: Coperative. Nonsuicidal Musculoskeletal: No joint swelling or deformity. Normal range of motion. Vitals: Vital Signs Temp Pulse Pulse Pulse Resp BP BP 12/14/23 07:00 97.4 F L 56 L 14 93/66 12/14/23 06:09 77 104/72 12/14/23 02:09 97.9 F 71 18 103/68 12/13/23 22:12 97.7 F 79 18 121/81 12/13/23 21:19 80 16 12/13/23 19:25 98 F 85 16 100/87 12/13/23 18:00 98.2 F 84 18 105/77 12/13/23 16:48 76 16 108/69 12/13/23 16:43 76 18 104/80 12/13/23 15:41 98/81 12/13/23 15:23 75 12/13/23 15:15 97.4 F L 76 20 117/62 Pulse Ox 12/14/23 07:00 100 12/14/23 06:09 12/14/23 02:09 99 12/13/23 22:12 100 12/13/23 21:19 12/13/23 19:25 97 12/13/23 18:00 100 12/13/23 16:48 95 12/13/23 16:43 12/13/23 15:41 12/13/23 15:23 12/13/23 15:15 100 Intake and Output 12/13/23 12/14/23 12/14/23 22:59 06:59 14:59 Other: # Voids 0 2 Weight 81.647 kg Patient Condition at Discharge: Fair Plan - Discharge Summary New Discharge Prescriptions: Continue traZODone HCL [Desyrel] 50 - 150 mg PO HS PRN PRN Reason: Insomnia Spironolactone 25 mg PO DAILY Simethicone Chew [Mylicon Chew] 80 mg PO Q4H PRN PRN Reason: Gi Upset Fluticasone/Vilanterol [Breo Ellipta 100-25 Mcg Inhalr] 1 puff INHALATION RT- BID Aspirin 81 mg PO DAILY Acetaminophen [Tylenol] 650 mg PO Q4H PRN PRN Reason: Fever And/ Or Pain Ibuprofen [Motrin Ib] 600 mg PO Q6H PRN PRN Reason: Fever And/ Or Pain Menthol [Icy Hot] 1 patch TRANSDERM Q12H PRN PRN Reason: Pain Calcium Phos/D3/Magnesium/Zinc [Ewkqkav-Aou-Uaxq-Vitamin D3] 1 tab PO TID PRN PRN Reason: CRAMPING Empagliflozin [Jardiance] 10 mg PO DAILY Sacubitril/Valsartan [Entresto 24 mg-26 mg Tablet] 1 tab PO BID carvediloL [Coreg] 3.125 mg PO BID Atorvastatin [Lipitor] 20 mg PO HS Changed Furosemide [Lasix] 40 mg PO DAILY PRN #0 PRN Reason: leg swelling Discharge Medication List Acetaminophen [Tylenol] 650 mg PO Q4H PRN 12/13/23 [History] Aspirin 81 mg PO DAILY 12/13/23 [History] Atorvastatin [Lipitor] 20 mg PO HS 12/13/23 [History] Calcium Phos/D3/Magnesium/Zinc [Minrrbh-Aja-Gzrd-Vitamin D3] 1 tab PO TID PRN 12/13/23 [History] Empagliflozin [Jardiance] 10 mg PO DAILY 12/13/23 [History] Fluticasone/Vilanterol [Breo Ellipta 100-25 Mcg Inhalr] 1 puff INHALATION RT-BID 12/13/23 [History] Ibuprofen [Motrin Ib] 600 mg PO Q6H PRN 12/13/23 [History] Menthol [Icy Hot] 1 patch TRANSDERM Q12H PRN 12/13/23 [History] Sacubitril/Valsartan [Entresto 24 mg-26 mg Tablet] 1 tab PO BID 12/13/23 [History] Simethicone Chew [Mylicon Chew] 80 mg PO Q4H PRN 12/13/23 [History] Spironolactone 25 mg PO DAILY 12/13/23 [History] carvediloL [Coreg] 3.125 mg PO BID 12/13/23 [History] traZODone HCL [Desyrel] 50 - 150 mg PO HS PRN 12/13/23 [History] Furosemide [Lasix] 40 mg PO DAILY PRN #0 12/14/23 [Rx] Follow up Appointment(s)/Referral(s): Nonstaff,Physician [Primary Care Provider] - 1-2 days Patient Instructions/Handouts: Chest Pain (DC) Activity/Diet/Wound Care/Special Instructions: medically discharged f/u with known business office representative after discharged from [facility]. Discharge Disposition: HOME SELF-CARE
== END 2023-12-14 17:17 | disposition home or self-care (01) ==
LOC: EC 15:14 → 6NMEDSUR 18:52
PROVIDERS: ADMIT Internal Medicine; ATTEND Internal Medicine
DX: R07.89 Other chest pain (principal); I42.8 Other cardiomyopathies; N17.9 Acute kidney failure, unspecified; D86.9 Sarcoidosis, unspecified; I25.10 Atherosclerotic heart disease of native coronary artery without angina pectoris; I50.22 Chronic systolic (congestive) heart failure; I11.0 Hypertensive heart disease with heart failure; E78.5 Hyperlipidemia, unspecified; M32.9 Systemic lupus erythematosus, unspecified; F14.90 Cocaine use, unspecified, uncomplicated; M79.7 Fibromyalgia; R11.0 Nausea; F17.200 Nicotine dependence, unspecified, uncomplicated; R94.31 Abnormal electrocardiogram [ECG] [EKG]; R91.8 Other nonspecific abnormal finding of lung field; R74.8 Abnormal levels of other serum enzymes; R79.89 Other specified abnormal findings of blood chemistry; F41.9 Anxiety disorder, unspecified; I25.2 Old myocardial infarction; Z79.82 Long term (current) use of aspirin; Z79.84 Long term (current) use of oral hypoglycemic drugs; Z79.51 Long term (current) use of inhaled steroids; Z79.899 Other long term (current) drug therapy; Z91.041 Radiographic dye allergy status; Z11.52 Encounter for screening for COVID-19; Z95.810 Presence of automatic (implantable) cardiac defibrillator; Z11.59 Encounter for screening for other viral diseases; Z71.51 Drug abuse counseling and surveillance of drug abuser; Z71.6 Tobacco abuse counseling
CPT/HCPCS: 96361; 96374; 96375; 99285; 36415; 94640 ×2; 93005; 93306; 85379; 80061; 80053; 80048; 82150; 83690; 83735; 84484; 85025 ×2; 85610; 85730; 87636; 71046; 71275; G0378 ×2; J2060; J1200; J3490; Q9957; Q9967; J2919